=== PATIENT | male | born 1985 | race African-American/Black ===

== ENCOUNTER 2017-10-06 18:42 | Emergency (ER) | payer OTHER, SELFPAY ==
[2017-10-06 18:43] VITALS: BP 158/117; PULSE 111; RESP 32; TEMP 36.8; O2SAT 97; BMI 43.9
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
[2017-10-06 21:15] VITALS: BP 147/84; PULSE 97; RESP 22; O2SAT 98
--- NOTE | 2017-10-06 21:29 | ED.DEP ---
ED Disposition - Plan for ED Patient: Chief Complaint: Back Instructions: ED Low Back Pain Injury Referrals: Corporate,[facility] [GROUP OF PHYSICIANS] -
--- NOTE | 2017-10-06 21:30 | DCINST.ED_ITS ---
ED Disposition - Plan for ED Patient: Chief Complaint: Back Instructions: ED Low Back Pain Injury Referrals: Corporate,[facility] [GROUP OF PHYSICIANS] -
[2017-10-06] MEDS: Naproxen 500 MG Tablet PO (21:37)
[2017-10-06 21:38] VITALS: BP 147/84; PULSE 97; RESP 18; O2SAT 98
== END 2017-10-06 21:43 | disposition home or self-care (01) ==
PROVIDERS: Emergency Provider Emergency Medicine
DX: S39.012A Strain of muscle, fascia and tendon of lower back, initial encounter (principal); S70.02XA Contusion of left hip, initial encounter; W19.XXXA Unspecified fall, initial encounter; Y93.9 Activity, unspecified; Y92.9 Unspecified place or not applicable; Y99.9 Unspecified external cause status; I89.0 Lymphedema, not elsewhere classified
CPT/HCPCS: 72100; 73502; 99283